=== PATIENT | male | born 1980 | race Caucasian/White ===

== ENCOUNTER 2017-01-04 10:53 | Emergency (ER) | payer OTHER ==
[~2017-01-04] VITALS: Ht 172.7 cm; Wt 86.7 kg
[2017-01-04 10:55] VITALS: TEMP 36.8; Ht 172.7 cm; Wt 86.7 kg
--- NOTE | 2017-01-04 11:32 | DIAGNOSTIC IMAGING REPORT ---
L FINGER(S) MIN 2 VIEWS ROUTINE HISTORY: 36 years-old Male L index finger injury acute left second digit hand pain status post trauma COMPARISON: None available TECHNIQUE: 3 views of the fingers with attention to the left second digit were obtained. FINDINGS: There is mild soft tissue swelling of the second digit without acute fracture, dislocation or significant degenerative changes identified. No opaque foreign body. IMPRESSION: Mild soft tissue swelling without fracture. The above report was generated using voice recognition software. It may contain grammatical, syntax or spelling errors. Electronically signed by: Jhonathan Ann M.D. 01/04/2017 11:31 AM Dictated Date/Time: 01/04/2017 11:29 AM
[2017-01-04 12:15] VITALS: BP 125/76; PULSE 88; O2SAT 98
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
== END 2017-01-04 12:15 | disposition home or self-care (01) ==
LOC: C.EDB 10:54 → C.EDD 12:15
DX: S63.611A Unspecified sprain of left index finger, initial encounter (principal); Y04.8XXA Assault by other bodily force, initial encounter; Y99.0 Civilian activity done for income or pay; Y92.149 Unspecified place in prison as the place of occurrence of the external cause